=== PATIENT | male | born 1965 | race Caucasian/White ===

== ENCOUNTER → 2016-11-10 | Outpatient (CLI) | payer SELFPAY ==
[~2016-11-10] MED LIST: CLIN300C86 PO; HYDR-4009 PO; NAPR220T61 PO
--- NOTE | 2016-11-10 11:10 | DI ---
Indication: ITS.REASON: R14.0 BLOATING PROCEDURE: NM GASTRIC EMPTYING STUDY: Encounter: Initial Comparison: None. Technique: The patient consumed a standard meal labeled with approximately 2.1 mCi of Tc-99m sulfur colloid. Anterior and posterior planar images were obtained and time/activity curves were calculated. Findings: Radiotracer is seen to progress normally from the gastric fundus to the antrum and into the small bowel. The calculated T-1/2 gastric emptying time is normal at approximately 65 minutes (normal range 45-110 minutes). Impression: Normal gastric emptying study. .
== END ==
LOC: IMA 08:22
PROVIDERS: ATTEND Nurse Practitioner Family
DX: R14.0 Abdominal distension (gaseous) (principal)